=== PATIENT | male | born 1985 | race Hispanic/Latino ===

== ENCOUNTER 2019-07-25 20:01 | Emergency (ER) | payer OTHER ==
[~2019-07-25] VITALS: Ht 162.6 cm; Wt 63.6 kg
[2019-07-25 20:22] LABS: HEMATOCRIT 45.5 % (39.0-50.0); HEMOGLOBIN 15.5 g/dl (14.0-18.0); IMMATURE GRANULOCYTES 0.1 % (0.0-5.0); MEAN CORPUSCULAR HGB CONC 34.1 g/L CALC (32.0-36.0); NEUT# 5.4 thou/uL (1.82-7.42)
[2019-07-25 20:35] LABS: ALKALINE PHOSPHATASE 95 u/l (38-126); ANION GAP 17 (6-22 (CALC)); BILIRUBIN, TOTAL 0.7 mg/dL (0.0-1.4); BUN 15 mg/dL (9-20); BUN/CREATININE RATIO 16 (12-20 (CALC)); CARBON DIOXIDE 25 mmol/l (22-30); CHLORIDE 103 mmol/l (95-108); CREATININE 0.9 mg/dL (0.7-1.3); GFR > 60 ML/MIN (>=60 (CALC)); GFR FOR AFR.AMER. > 60 ML/MIN (>=60 (CALC)); POTASSIUM 3.8 mmol/l (3.5-5.1); SGOT/AST 51 u/l (17-59); SODIUM 141 mmol/l (137-146); TOTAL PROTEIN 8.5 g/dL (6.3-8.2)
[2019-07-25] MEDS ORDERED: VOLTAREN - GENE75 MG PO (22:01)
[2019-07-25] MEDS ORDERED: TRAMADOL HCL50 MG PO (22:01)
[2019-07-25 22:29] VITALS: BP 134/90
== END 2019-07-25 22:23 | disposition home or self-care (01) | DRG 605 ==
LOC: ED 20:01
PROVIDERS: Family Medicine
DX: S50.11XA Contusion of right forearm, initial encounter (principal); S40.021A Contusion of right upper arm, initial encounter; S20.211A Contusion of right front wall of thorax, initial encounter; S30.811A Abrasion of abdominal wall, initial encounter; S50.311A Abrasion of right elbow, initial encounter; S16.1XXA Strain of muscle, fascia and tendon at neck level, initial encounter; V43.52XA Car driver injured in collision with other type car in traffic accident, initial encounter; Y92.410 Unspecified street and highway as the place of occurrence of the external cause

== ENCOUNTER 2020-09-19 19:25 | Emergency (ER) | payer OTHER ==
[~2020-09-19] VITALS: Ht 170.2 cm; Wt 73.0 kg
[~2020-09-19 19:25] MED LIST: TRAMADOL HCL50 MG PO; VOLTAREN - GENE75 MG PO
[2020-09-19] MEDS ORDERED: [UNRECOGNIZED DRUG - SUPPLY] (19:56)
[2020-09-19] MEDS ORDERED: MOTRIN200 MG PO (19:58)
[2020-09-19] MEDS ORDERED: KEFLEX500 M1 PO (20:03)
[2020-09-19] MEDS ORDERED: NAPROXEN500 MG PO (20:03)
[2020-09-19 20:24] VITALS: BP 113/89
== END 2020-09-19 20:24 | disposition home or self-care (01) | DRG 605 ==
LOC: ED 19:25
DX: S60.221A Contusion of right hand, initial encounter (principal); W22.8XXA Striking against or struck by other objects, initial encounter; Y92.89 Other specified places as the place of occurrence of the external cause; Y99.0 Civilian activity done for income or pay

== ENCOUNTER → 2022-09-23 | Emergency (ER) | payer SELFPAY ==
[~2022-09-23] MED LIST changes: +KEFLEX500 M1 PO; +MOTRIN200 MG PO; +NAPROXEN500 MG PO; +[UNRECOGNIZED DRUG - SUPPLY]
== END | disposition home or self-care (01) | DRG 951 ==
LOC: ED 17:00 → LWOBS 17:05
DX: Z53.21 Procedure and treatment not carried out due to patient leaving prior to being seen by health care provider (principal)